=== PATIENT | male | born 1960 | race Two or more races ===

== ENCOUNTER 2017-05-09 21:33 | Emergency (ER) | payer SELFPAY ==
[~2017-05-09] VITALS: Ht 165.1 cm; Wt 81.6 kg
[2017-05-09] MEDS ORDERED: Ketorolac 30mg Inj IV ONE (22:00)
[2017-05-09 22:19] LABS: HEMATOCRIT 40.3 % (42.0-52.0); HEMOGLOBIN 13.6 G/DL (14.2-18.0); MEAN CORPUSCULAR VOLUME 99 FL (80-99); PLATELET COUNT 86 K/UL (150-450); RED BLOOD COUNT 4.07 M/UL (4.70-6.10); RED CELL DISTRIBUTION WIDTH 12.2 % (11.6-14.8); WHITE BLOOD COUNT 8.6 K/UL (4.8-10.8)
[2017-05-09 22:21] LABS: BASOPHILS % (AUTO) 1.2 % (0.0-2.0); EOSINOPHILS % (AUTO) 0.6 % (0.0-3.0); LYMPHOCYTES % (AUTO) 32.2 % (20.0-45.0); MONOCYTES % (AUTO) 10.6 % (1.0-10.0); NEUTROPHILS % (AUTO) 55.4 % (45.0-75.0)
[2017-05-09 22:35] LABS: ANION GAP 10 mmol/L (5-15); BLOOD UREA NITROGEN 1 mg/dL (7-18); CALCIUM 7.3 MG/DL (8.5-10.1); CARBON DIOXIDE 24 MMOL/L (21-32); CHLORIDE 102 MMOL/L (98-107); CREATININE 0.9 MG/DL (0.55-1.30); POTASSIUM 3.2 MMOL/L (3.5-5.1); SODIUM 136 MMOL/L (136-145)
[2017-05-09 22:45] LABS: ALANINE AMINOTRANSFERASE 100 U/L (12-78); ALBUMIN 2.1 G/DL (3.4-5.0); ALBUMIN/GLOBULIN RATIO 0.4 (1.0-2.7); ALKALINE PHOSPHATASE 286 U/L (46-116); ASPARTATE AMINO TRANSFERASE 481 U/L (15-37); BILIRUBIN,TOTAL 4.4 MG/DL (0.2-1.0)
[2017-05-09 22:46] LABS: BILIRUBIN,DIRECT 3.6 MG/DL (0.0-0.3)
[2017-05-09 23:45] LABS: APPEARANCE,URINE CLEAR; BILIRUBIN, URINE NEGATIVE (NEGATIVE); GLUCOSE, URINE (UA) NEGATIVE (NEGATIVE); KETONES,URINE NEGATIVE (NEGATIVE); LEUKOCYTE ESTERASE ,URINE 1+ (NEGATIVE); NITRITE,URINE NEGATIVE (NEGATIVE); PH,URINE 7 (4.5-8.0); PROTEIN,URINE NEGATIVE (NEGATIVE); UROBILINOGEN,URINE NORMAL MG/DL (0.0-1.0)
[2017-05-09 23:53] LABS: COLOR,URINE YELLOW
[2017-05-10] MEDS ORDERED: LIBRIUM25 MG ORAL (00:07)
--- NOTE | 2017-05-10 00:07 | Emergency Room Report ---
History of Present Illness General Chief Complaint: Abdominal Pain Source: Patient, Family Member, EMS Present Illness HPI This is a 56-year-old male who is an alcoholic. He continue to drink. He is also chief complaint abdominal pain and distention. This is a chronic problem. He been to several ER for this. No nausea no vomiting. Pain is diffuse but mostly right upper quadrant. Pain is 8 out of 10. Worse with drinking and palpation. No nausea no vomiting. Had bowel movement today. Allergies: Coded Allergies: No Known Allergies (Unverified , 05/09/17) Patient History Past Medical History: see triage record, old chart reviewed Past Surgical History: other Pertinent Family History: none Social History: Reports: alcohol use Immunizations: other Reviewed Nursing Documentation: PMH: Agreed, PSxH: Agreed Review of Systems Eye: Denies: eye pain, blurred vision ENT: Denies: ear pain, nose congestion, throat swelling Respiratory: Denies: cough, shortness of breath Cardiovascular: Denies: chest pain, palpitations Gastrointestinal: Reports: abdominal pain, Denies: diarrhea, nausea, vomiting Musculoskeletal: Denies: back pain, joint pain Skin: Denies: rash Neurological: Denies: headache, numbness Endocrine: Denies: increased thirst, increased urine Hematologic/Lymphatic: Denies: easy bruising All Other Systems: negative except mentioned in HPI Physical Exam Vital Signs Date Time Temp Pulse Resp B/P (MAP) Pulse Ox O2 Delivery O2 Flow Rate FiO2 05/09/17 21:28 98.3 124 18 148/94 98 Room Air 98.2 vitals with tachycardia Sp02 EP Interpretation: reviewed, normal General Appearance: well appearing, no apparent distress, alert Head: normocephalic, atraumatic Eyes: bilateral eye PERRL, bilateral eye EOMI ENT: hearing grossly normal, normal pharynx Neck: full range of motion, supple, no meningismus Respiratory: chest non-tender, lungs clear, normal breath sounds Cardiovascular #1: regular rate, rhythm, no murmur, tachycardia - heart rate 100 Gastrointestinal: normal bowel sounds, no mass, no organomegaly, no bruit, non- distended, tenderness - mild right upper quadrant, enlarged liver, other - ascites Musculoskeletal: back normal, gait/station normal, normal range of motion Psychiatric: mood/affect normal Skin: warm/dry Medical Decision Making Diagnostic Impression: Primary Impression: Alcoholic hepatitis with ascites Additional Impressions: Alcoholic fatty liver Alcohol abuse ER Course Patient with alcoholic hepatitis. He does have ascites. No evidence of perforation. No evidence of obstruction. Pain is better now. We'll discharge home. Lab Results Impression labs with elevated liver enzymes Last Vital Signs Date Time Temp Pulse Resp B/P (MAP) Pulse Ox O2 Delivery O2 Flow Rate FiO2 05/09/17 21:28 98.3 124 18 148/94 98 Room Air 98.2 Status: improved Disposition: HOME, SELF-CARE Condition: Stable Scripts Chlordiazepoxide (Chlordiazepoxide HCl) 25 Mg Capsule 25 MG ORAL THREE TIMES A DAY, #21 CAP 0 Refills Prov: ROS BANUELOS M.D. 05/10/17 Referrals: NOT CHOSEN [facility]/,REFERRING (PCP) Additional Instructions: Stop drinking alcohol. If not, he will go into liver failure and will need a liver transplant or you will . Follow-up with your Dr. in 2-3 days. Return if symptom worsen. ROS BANUELOS M.D. May 10, 2017 00:07
[2017-05-10 00:20] VITALS: BP 140/90
--- NOTE | 2017-05-10 09:35 | Diagnostic Imaging Report ---
Indication: Abdominal pain Technique: Spiral acquisitions obtained through the abdomen and pelvis. No oral contrast utilized, per emergency room physician request No IV contrast utilized, murmurs zero physician request.. Multiplanar reconstructions were generated. Total dose length product 941.85 mGycm. CTDIvol(s) 16.38 mGy. Dose reduction achieved using automated exposure control Comparison: None Findings: There is a moderate amount of ascites fluid present. There is thickening of the distal esophageal wall. The stomach and duodenum are unremarkable. No evidence of diverticulosis or diverticulitis. The appendix is not definitely visualized, but no findings to suggest acute appendicitis are evident. Some small bowel loops are mildly distended, fluid-filled and there are occasional areas of small bowel wall thickening. A definite transition point is not demonstrated. No free intraperitoneal air. Lack of IV contrast limits assessment of the solid organs. The liver is diffusely hypoattenuating, consistent with fatty change. It is enlarged. No definite focal abnormality. The gallbladder, bile ducts, pancreas, spleen, adrenals, left kidney are unremarkable. There is a 2 mm calyceal calculus is seen in the lower pole of the right kidney. No retroperitoneal or mesenteric mass or adenopathy. No pelvic mass or adenopathy. The included lung bases demonstrate atelectatic changes. The bones demonstrate degenerative changes at the lumbosacral junction. Impression: Mildly distended fluid-filled small bowel loops with occasional areas of small bowel wall thickening. No definite transition point. Suspect enteritis. Partial small bowel obstruction less likely Moderate ascites Enlarged fatty liver Basilar pulmonary atelectasis Nonobstructive right renal calculus This agrees with the preliminary interpretation provided overnight by [facility] service. The CT scanner at [facility] is accredited by the [employer] and the scans are performed using protocols designed to limit radiation exposure to as low as reasonably achievable to attain images of sufficient resolution adequate for diagnostic evaluation.
== END 2017-05-10 00:20 | disposition home or self-care (01) ==
LOC: EDBD 21:33 → EMR 22:06
DX: K70.11 Alcoholic hepatitis with ascites (principal); F10.10 Alcohol abuse, uncomplicated; K70.0 Alcoholic fatty liver
CPT/HCPCS: 36415; 74176; 80053; 81003; 82248; 83690; 85025; 96374; 99284; J1885